=== PATIENT | female | born 1965 | race Caucasian/White ===

== ENCOUNTER → 2019-09-01 | Outpatient (CLI) | payer OTHER ==
--- NOTE | 2019-09-01 13:18 | Diagnostic Imaging Report ---
INDICATION: Palpable lumps upper outer left breast. Correlation is made with prior mammogram from 06/15/2017. 2-D and 3-D bilateral diagnostic mammography was performed with CAD. BB markers were placed at the areas of palpable abnormality in the upper outer left breast. Scattered fibroglandular densities are identified bilaterally. There is a tiny circumscribed nodule in the retroareolar left breast which appears stable and likely a cyst. No mass at the area of palpable abnormality is seen. No suspicious microcalcifications are seen. Axillae are unremarkable. IMPRESSION: BI-RADS 0 No mammographic features suspicious for malignancy are identified. [place], directed sonographic interrogation of the areas of palpable abnormality upper outer left breast is recommended and will be performed today. ACR BI-RADS Category 0: Incomplete. (Needs additional imaging evaluation). Result letter will be mailed to the patient. Note: At least 10% of breast cancer is not imaged by mammography. Dictated by: Dictated on workstation # [id number]
--- NOTE | 2019-09-01 14:03 | Diagnostic Imaging Report ---
INDICATION: Palpable lump in the left breast. COMPARISON: Correlation is made with the diagnostic mammogram from earlier this same day. FINDINGS: Sonographic interrogation of the area of palpable abnormality in the left breast was performed. This corresponds to the 1 to 2 o'clock location. No sonographic abnormality is identified. No solid or cystic mass is detected. IMPRESSION: No sonographic abnormality is identified. Continued close clinical and self breast exams are recommended to confirm stability of the palpable abnormality. ACR BI-RADS Category 1: Negative. Dictated by: Dictated on workstation # [id number]
== END ==
LOC: RAD 12:50
PROVIDERS: ATTEND Nurse Practitioner Family
DX: N63.20 Unspecified lump in the left breast, unspecified quadrant (principal)
CPT/HCPCS: 76642; 77066; G0279; 77062